=== PATIENT | male | born 1960 | race African-American/Black ===

== ENCOUNTER 2018-05-30 08:53 | Emergency (ER) | payer MEDICAID ==
[~2018-05-30] VITALS: Ht 170.2 cm; Wt 84.0 kg
[2018-05-30 09:05] VITALS: BP 165/99
[2018-05-30] MEDS ORDERED: IBUPROFEN 400MG TABLET PO ONE (11:00)
== END 2018-05-30 11:47 | disposition left against medical advice (07) ==
LOC: ER 09:01
DX: M25.552 Pain in left hip (principal); W01.0XXA Fall on same level from slipping, tripping and stumbling without subsequent striking against object, initial encounter; Y93.89 Activity, other specified; Y92.811 Bus as the place of occurrence of the external cause
CPT/HCPCS: 99281

== ENCOUNTER 2018-08-17 10:33 | Emergency (ER) | payer MEDICAID ==
[~2018-08-17] VITALS: Ht 167.6 cm; Wt 84.0 kg
[2018-08-17 11:26] VITALS: BP 148/98
== END 2018-08-17 11:29 | disposition home or self-care (01) ==
LOC: ER 10:39
DX: R51 Headache (principal); F17.210 Nicotine dependence, cigarettes, uncomplicated; Z87.828 Personal history of other (healed) physical injury and trauma; Z88.6 Allergy status to analgesic agent
CPT/HCPCS: 99281